=== PATIENT | female | born 1990 | race Caucasian/White ===

== ENCOUNTER 2018-09-21 23:37 | Emergency (ER) | payer SELFPAY ==
[~2018-09-21] VITALS: Ht 170.2 cm; Wt 48.1 kg
[2018-09-21 23:40] VITALS: BP 124/79; PULSE 74; RESP 18; Ht 170.2 cm; Wt 48.1 kg
== END 2018-09-22 01:03 | disposition left against medical advice (07) ==
LOC: FTE 23:37
DX: Z53.21 Procedure and treatment not carried out due to patient leaving prior to being seen by health care provider (principal)